=== PATIENT | female | born 1995 | race Caucasian/White ===

== ENCOUNTER → 2016-10-04 | Outpatient (CLI) | payer OTHER ==
[~2016-10-04] MED LIST: CYCL10TA9 PO; FLUO40CA PO; HYDR-3730 PO; NITR-65 PO; NORG1TAB14 PO; PHEN-640 PO; PHEN15CA67 PO
--- NOTE | 2016-10-04 10:45 | Diagnostic Imaging Report ---
PROCEDURE: US Gallbladder. INDICATION: Postprandial right upper quadrant pain for 2-3 weeks with nausea. TECHNIQUE: Multiple grayscale sonographic images were obtained of the right upper quadrant of the abdomen. CORRELATION STUDY: None FINDINGS: LIVER: The liver measures 14 cm. There is uniform echotexture. GALLBLADDER: The gallbladder is present and demonstrates no evidence of shadowing gallstones or biliary sludge. No abnormal gallbladder wall thickening or pericholecystic fluid. COMMON BILE DUCT: Within normal limits at 3 mm. RIGHT KIDNEY: Measures 11.1 cm. No hydronephrosis. PANCREAS: Visualized portions appearing unremarkable. OTHER: None. IMPRESSION: 1. Negative appearing right upper quadrant abdominal ultrasound. Dictated by: Dictated on workstation # [id number]
== END ==
LOC: RAD 09:15
PROVIDERS: ATTEND Nurse Practitioner Family
DX: R10.11 Right upper quadrant pain (principal); R10.13 Epigastric pain
CPT/HCPCS: 76705

== ENCOUNTER 2016-10-11 19:35 | Emergency (ER) | payer OTHER ==
[~2016-10-11] VITALS: Ht 165.1 cm; Wt 74.4 kg
[2016-10-11] MEDS ORDERED: NORG1TAB14 PO (20:20)
[2016-10-11] MEDS ORDERED: PHEN15CA67 PO (20:20)
[2016-10-11] MEDS ORDERED: FLUO40CA PO (20:20)
--- NOTE | 2016-10-11 20:26 | ED GU-Female ---
General Chief Complaint: -Female Stated Complaint: VAGINAL BLEEDING,CRAMPING Nursing Triage Note: MOTHER GIVING HX FOR 21 Y/O. PT SHOULD OF STARTED MENSES SUNDAY AND STARTED TODAY. MOTHER OBTAINED TAMPON FOR STAFF TO FEW CLOTS SHE THOUGHT WERE ABNORMAL. ALSO A PIC ON CELLPHONE OF A CLOT. LMP LAST MONTH. MOTHER REQUEST TEST. PT REPORTS CRAMPS WITH HER MENSTRUAL FLOW. Nursing Sepsis Screen: No Definite Risk Source: patient, family (mother) Exam Limitations: no limitations History of Present Illness Time seen by provider: 20:25 Initial Comments 21-year-old female patient presents to the emergency department with her mother with reports of abnormal blood clots on the tampon earlier today. Patient states she should have started her period last Sunday, but states she started today instead. Patient does report lower abdominal cramping similar to usual menstrual cramping. Timing/Duration: this morning Severity/Quality: cramping Location: suprapubic Radiation: none Activities at Onset: none Prior Genitourinary Problems: similar symptoms Sexual Normangee History: less than 2 months ago, single partner Modifying Factors: Worsens With Other (denies modifying factors) Allergies and Home Medications Allergies Uncoded Allergies: PENICILLIN (Adverse Reaction, Mild, HIVES, 10/11/16) Home Medications Fluoxetine HCl 40 Mg Capsule #30 40 MG PO DAILY (Reported) Nitrofurantoin Monohyd/M-Cryst 100 Mg Capsule #14 1 CAP PO BID Prescribed by: ALEXANDRA CLINE on 10/11/162134 Norgestimate-Ethinyl Estradiol 1 Each Tablet #84 15 MG PO DAILY (Reported) Phenazopyridine HCl 200 Mg Tablet #30 1 TAB PO Q8H PRN PRN PAIN Prescribed by: ALEXANDRA CLINE on 10/11/162134 Phentermine HCl 15 Mg Capsule 15 MG PO DAILY (Reported) Constitutional: No chills, No dizziness, No fever, No malaise Respiratory: no symptoms reported Cardiovascular: no symptoms reported Gastrointestinal: see HPI abdominal pain (suprapubic abdominal cramping)No constipation, No diarrhea, No hematemesis, No loss of appetite, No melena, No nausea, No vomiting Genitourinary: see HPIdenies burning, denies discharge, denies dysuria, denies frequency, denies flank pain, denies hematuria, pain (suprapubic cramping) : No LMP: Sep 10, 2016 Musculoskeletal: No back pain Skin: no symptoms reported Psychiatric/Neurological: No Symptoms Reported All Other Systemes Reviewed Negative Unless Noted: Yes (Negative excepted noted.) Past Duwicxi-Nezcgn-Guinet Hx Patient Social History Alcohol Use: Occasionally Uses Recreational Drug Use: No Smoking Status: Never a Smoker Recent Foreign Travel: No Contact w/Someone Who Travel: No Recent Infectious Disease Expo: No Recent Hopitalizations: No Physical Abuse Screen: No Sexual Abuse: No Seasonal Allergies Seasonal Allergies: No Surgeries HX Surgeries: Yes Surgeries: Appendectomy Respiratory Hx Respiratory Disorders: No Cardiovascular Hx Cardiac Disorders: No Reproductive System : No (REPORTS AUG PERIOD) Hx : 0 Hx Reproductive Disorders: No Genitourinary Hx Genitourinary Disorders: No Gastrointestinal Hx Gastrointestinal Disorders: No Musculoskeletal Hx Musculoskeletal Disorders: No HEENT HX ENT Disorders: No Cancer Hx Cancer: No Psychosocial Hx Psychiatric Problems: Yes Behavioral Health Disorders: Anxiety, Depression Integumentary HX Skin/Integumentary Disorder: No Blood Transfusions Hx Blood Disorders: No Reviewed Nursing Assessment Reviewed/Agree w Nursing PMH: Yes Family Medical History Significant Family History: No Pertinent Family Hx Physical Exam Vital Signs Capillary Refill : Less Than 3 Seconds General Appearance: WD/WN no apparent distress Cardiovascular: normal peripheral pulses regular rate, rhythm no murmur Respiratory: lungs clear normal breath sounds no respiratory distress Gastrointestinal: normal bowel sounds non tender soft no organomegalyNo distended Back: normal inspection no CVA tenderness Extremities: normal inspection normal capillary refill Neurologic/Psychiatric: alert normal mood/affect oriented x 3 Skin: normal color warm/dry Progress/Results/Core Measures Results/Orders Lab Results My Orders Vital Signs/I&O Blood Pressure Mean: 96 Departure Communication Progress Notes Laboratory findings discussed with the patient. Proceed with discharge to home. Patient follow-up Dr. Davalos for formal pelvic/Pap smear has an outpatient. Impression Impression: Primary Impression: Urinary tract infection Disposition: HOME, SELF-CARE Condition: Improved Departure-Patient Inst. Decision time for Depature: 21:33 Referrals: NAVIN DAVALOS MD (PCP/Family) Primary Care Physician Patient Instructions: Urinary Tract Infection, Adult (DC) Add. Discharge Instructions: All discharge instructions reviewed with patient and/or family. Voiced understanding. Medications as instructed. Tylenol Extra Strength over-the- counter as directed for pain. Ibuprofen 800 mg by mouth every 8 hours as needed for pain. Drink plenty of fluids. Follow-up with your family physician for recheck, call for appointment time tomorrow morning. Return to the emergency department for worsened symptoms or any other concerns. Scripts Nitrofurantoin Monohyd/M-Cryst (Macrobid 100 mg Capsule)100 Mg Capsule1 Cap PO BID #14 0 Prov:ALEXANDRA CLINE 10/11/16 Phenazopyridine HCl (Pyridium)200 Mg Tablet1 Tab PO Q8H PRN PAIN #30 AD Prov:ALEXANDRA CLINE 10/11/16 Work/School Note: Work Release Form Date Seen in the Emergency Department: Oct 11, 2016 Return to Work: Oct 13, 2016 Restrictions: No Restrictions ALEXANDRA CLINE Oct 11, 2016 20:26 Lymphocytes (%) (Auto) 31 12-44 % Mean Corpuscular Hemoglobin 30 25-34 PG Mean Corpuscular Hemoglobin Concent 34 32-36 G/DL Mean Corpuscular Volume 89 80-99 FL Mean Platelet Volume 11.1 H 7.4-10.4 FL Monocytes # (Auto) 0.8 0.0-1.0 X 10^3 Monocytes (%) (Auto) 10 0-12 % Neutrophils # (Auto) 4.1 1.8-7.8 X 10^3 Neutrophils (%) (Auto) 53 42-75 % Platelet Count 284 130-400 10^3/uL Red Blood Count 4.48 4.35-5.85 10^6/uL Red Cell Distribution Width 13.5 10.0-14.5 % Serum Test, Qualitative NEGATIVE NEGATIVE White Blood Count 7.6 4.3-11.0 10^3/uL My Orders Orders-ALEXANDRA CLINE Ua Culture If Indicated (10/11/16 20:18) Cbc With Automated Diff (10/11/16 20:18) Hcg,Qualitative Serum (10/11/16 20:57) Urine Culture (10/11/16 20:47) Vital Signs/I&O Vital Sign - Last 12Hours 10/11/16 19:59 Temp 98.9 Pulse 84 Resp 20 B/P 119/84 O2 Delivery Room Air Blood Pressure Mean: 96 Departure Impression Impression: Primary Impression: Urinary tract infection Disposition: 01 HOME, SELF-CARE Condition: Improved Departure-Patient Inst. Decision time for Depature: 21:33 Referrals: NAVIN DAVALOS MD (PCP/Family) Primary Care Physician Patient Instructions: Urinary Tract Infection, Adult (DC) Add. Discharge Instructions: All discharge instructions reviewed with patient and/or family. Voiced understanding. Medications as instructed. Tylenol Extra Strength over-the- counter as directed for pain. Ibuprofen 800 mg by mouth every 8 hours as needed for pain. Drink plenty of fluids. Follow-up with your family physician for recheck, call for appointment time tomorrow morning. Return to the emergency department for worsened symptoms or any other concerns. Scripts Nitrofurantoin Monohyd/M-Cryst (Macrobid 100 mg Capsule)100 Mg Capsule1 Cap PO BID #14 0 Prov:ALEXANDRA CLINE 10/11/16 Phenazopyridine HCl (Pyridium)200 Mg Tablet1 Tab PO Q8H PRN PAIN #30 AD Prov:ALEXANDRA CLINE 10/11/16 Work/School Note: Work Release Form Date Seen in the Emergency Department: Oct 11, 2016 Return to Work: Oct 13, 2016 Restrictions: No Restrictions ALEXANDRA CLINE Oct 11, 2016 20:26
[2016-10-11 21:09] LABS: BASOPHILS % (AUTO) 0 % (0-10); EOSINOPHILS # (AUTO) 0.4 10^3/uL (0.0-0.3); EOSINOPHILS % (AUTO) 5 % (0-10); LYMPHOCYTES # (AUTO) 2.3 X 10^3 (1.0-4.0); LYMPHOCYTES % (AUTO) 31 % (12-44); MEAN CORPUSCULAR HEMOGLOBIN 30 PG (25-34); MEAN CORPUSCULAR HGB CONC 34 G/DL (32-36); MEAN CORPUSCULAR VOLUME 89 FL (80-99); MEAN PLATELET VOLUME 11.1 FL (7.4-10.4); MONOCYTES # (AUTO) 0.8 X 10^3 (0.0-1.0); MONOCYTES % (AUTO) 10 % (0-12); NEUTROPHILS # (AUTO) 4.1 X 10^3 (1.8-7.8); NEUTROPHILS % (AUTO) 53 % (42-75); PLATELET COUNT 284 10^3/uL (130-400); RED BLOOD COUNT 4.48 10^6/uL (4.35-5.85); RED CELL DISTRIBUTION WIDTH 13.5 % (10.0-14.5); WHITE BLOOD COUNT 7.6 10^3/uL (4.3-11.0)
[2016-10-11 21:10] LABS: KETONES,URINE NEGATIVE (NEGATIVE); LEUKOCYTE ESTERASE ,URINE 3+ (NEGATIVE); NITRITE,URINE NEGATIVE (NEGATIVE); PH,URINE 6 (5-9); PROTEIN,URINE 2+ (NEGATIVE); UROBILINOGEN,URINE 1 MG/DL (NORMAL)
[2016-10-11 21:20] LABS: SQUAMOUS EPITHELIAL CELL,UR 0-2 /HPF
[2016-10-11] MEDS ORDERED: NITR-65 PO (21:35)
[2016-10-11] MEDS ORDERED: PHEN-640 PO (21:35)
[2016-10-11] MEDS ORDERED: RX-NITROFURANTOIN 100 MG (MACROBID) CAP PPK#2 PO STA (21:40)
[2016-10-11 21:52] VITALS: BP 119/84
[2016-10-12 08:18] LABS: BILIRUBIN,URINE 1+ (NEGATIVE)
== END 2016-10-11 21:55 | disposition home or self-care (01) ==
LOC: EDUNIT# 19:35 → ER 19:36
DX: N39.0 Urinary tract infection, site not specified (principal); N94.6 Dysmenorrhea, unspecified; Z32.02 Encounter for pregnancy test, result negative
CPT/HCPCS: 36415; 81000; 84703; 85025; 87088; 99283

== ENCOUNTER → 2016-10-13 | Outpatient (CLI) | payer OTHER ==
[~2016-10-13] MED LIST changes: +CATHETER FLUSH 10 ML SYR IV PRN
--- OUTSIDE RECORDS SUMMARY | 2016-10-13 09:31 | XMS REPORT | Continuity of Care Document ---
Author Author [facility] Organization [facility] Address Unknown Phone Unavailable Care Team Providers Care Boat Outfitter Name Role Phone NAVIN MARIA MD PCP Insurance Providers Payer Name Policy Number Subscriber Name Relationship [id number] Keesha Perez Fish G8 Step Mother Advance Directives Directive Response Recorded Date/Time Advance Directives No 10/11/16 7:59pm Health Care Power of Press Loader No 10/11/16 7:59pm Organ Donor No 10/11/16 7:59pm Resuscitation Status Full Code 10/11/16 7:59pm Chief Complaint and Reason for Visit Chief Complaint -Female Reason for Visit Urinary tract infection Problems Active Problems Medical Problem Onset Date Status Urinary tract infection Unknown Acute Medications Current Home Medications Medication Dose Units Route Directions Days/Qty Instructions Start Date Fluoxetine Hcl 40 Mg 40 Mg Oral Daily 30 10/11/16 Norgestimate-Ethinyl Estradiol 1 Each 15 Mg Oral Daily 84 10/11/16 Phentermine Hcl 15 Mg 15 Mg Oral Daily 10/11/16 Phenazopyridine Hcl 200 Mg 1 Tab Oral Every 8HRS as needed for Pain 30 10/11/16 Nitrofurantoin Monohyd/M-Cryst 100 Mg 1 Cap Oral Twice A Day CAP Days 10/11/16 Social History Social History Problem Response Recorded Date/Time Alcohol Use Occasionally Uses 10/11/2016 7:59pm Recreational Drug Use No 10/11/2016 7:59pm Recent Foreign Travel No 10/11/2016 7:59pm Recent Infectious Disease Exposure No 10/11/2016 7:59pm Hospitalization with Isolation Denies 10/11/2016 7:59pm Smoking Status Never a Smoker 10/11/2016 7:59pm Recent Hopitalizations No 10/11/2016 7:59pm Hospitalization with Isolation Denies 10/11/2016 7:59pm Query Response Start Date Stop Date Smoking Status Never a Smoker Hospital Discharge Instructions No hospital discharge instructions. Plan of Care Discharge Date 10/11/16 9:55pm Disposition 01 HOME, SELF-CARE Condition at Discharge Improved Instructions/Education Provided Urinary Tract Infection, Adult (DC) Forms Provided Work Release Form Prescriptions See Medication Section Referrals NAVIN MARIA MD - Primary Care Physician Additional Instructions/Education All discharge instructions reviewed with patient and/or family. Voiced understanding. Medications as instructed. Tylenol Extra Strength [id number] as directed for pain. Ibuprofen 800 mg by mouth every 8 hours as needed for pain. Drink plenty of fluids. Follow-up with your family physician for recheck, call for appointment time tomorrow morning. Return to the emergency department for worsened symptoms or any other concerns. Functional Status No functional status results. Allergies, Adverse Reactions, Alerts Allergen Type Severity Reaction Status Last Updated PENICILLIN Adverse Reaction Mild HIVES Active 10/11/16 Immunizations No immunization records. Vital Signs Acute Vital Signs Vital Response Date/Time Temperature (Fahrenheit) 98.9 degrees F (97.6 - 99.5) 10/11/2016 7:59pm Temperature (Calculated Celsius) 37.08059 degrees C (36.4 - 37.5) 10/11/2016 7:59pm Temperature Source Temporal 10/11/2016 7:59pm Pulse Rate (adult) 84 bpm (60 - 90) 10/11/2016 7:59pm Respiratory Rate 20 bpm (12 - 24) 10/11/2016 7:59pm Blood Pressure 119/84 mm Hg 10/11/2016 7:59pm Blood Pressure Mean 96 mm Hg 10/11/2016 7:59pm Pain Numeric Pain Scale 2 10/11/2016 7:59pm Height (Feet) 5 feet 10/11/2016 7:59pm Height (Inches) 5 inches 10/11/2016 7:59pm Height (Calculated Centimeters) 165.753374 cm 10/11/2016 7:59pm Weight (Pounds) 164 pounds 10/11/2016 7:59pm Weight (Calculated Kilograms) 74.148915 kilograms 10/11/2016 7:59pm Capillary Refill Capillary Refill Less Than 3 Seconds 10/11/2016 7:59pm Height 5 ft 5 in Weight 164 lb Body Mass Index 27.3 kg/m^2 Results Pending Laboratory Results Test Name Collection Date/Time Procedures No known history of procedures. Encounters Encounter Location Arrival/Admit Date Discharge/Depart Date Attending Provider Registered Emergency Room [facility] 10/11/16 7:36pm ALEXANDRA CLINE Registered Clinic [facility] 10/04/16 9:15am EDUAR AMARO Recent Diagnosis
--- NOTE | 2016-10-13 12:09 | Diagnostic Imaging Report ---
EXAMINATION: HIDA with EF measurements Indication: Abdominal pain TECHNIQUE: After the intravenous administration of 5.4 mCi of Tc 99m Choletec, imaging over the abdomen was obtained. This was followed by administration of Ensure orally to stimulate intrinsic CCK secretion, followed by continued imaging with ejection fraction measured. FINDINGS: There is homogeneous uptake in the liver with prompt bile duct and gallbladder filling seen. Bowel activity is seen at 65 minutes. Based on further imaging and gallbladder area of interest activity measurements after the administration of Ensure, the gallbladder ejection fraction is estimated at 53%. IMPRESSION: 1. Normal hepatobiliary uptake and Gallbladder filling. 2. Borderline normal gallbladder ejection fraction. Correlate clinically. Dictated by: Dictated on workstation # [id number]
== END ==
LOC: CARD 09:27
PROVIDERS: ATTEND Family Medicine
DX: R10.11 Right upper quadrant pain (principal)
CPT/HCPCS: 78227

== ENCOUNTER 2016-11-02 10:49 | Outpatient (CLI) | payer OTHER ==
[~2016-11-02] VITALS: Ht 165.1 cm; Wt 80.3 kg
[~2016-11-02 10:49] MED LIST changes: -CATHETER FLUSH 10 ML SYR IV PRN; -CYCL10TA9 PO; -HYDR-3730 PO
--- OUTSIDE RECORDS SUMMARY | 2016-11-02 10:52 | XMS REPORT | Continuity of Care Document ---
Author Author [facility] Organization [facility] Address Unknown Phone Unavailable Care Team Providers Care Drum Sander Setter Name Role Phone NAVIN MARIA MD PCP Insurance Providers Payer Name Policy Number Subscriber Name Relationship [id number] Keesha Perez Fish G8 Step Mother Advance Directives Directive Response Recorded Date/Time Advance Directives No 10/11/16 7:59pm Health Care Power of Car Tester No 10/11/16 7:59pm Organ Donor No 10/11/16 [...] understanding. Medications as instructed. Tylenol Extra Strength [id number]-efplatk as directed for pain. Ibuprofen 800 mg [...] - 99.5) 10/11/2016 7:59pm Temperature (Calculated Celsius) 37.98105 degrees C (36.4 - 37.5) 10/11/2016 7:59pm [...] 5 inches 10/11/2016 7:59pm Height (Calculated Centimeters) 165.858171 cm 10/11/2016 7:59pm Weight (Pounds) 164 pounds 10/11/2016 7:59pm Weight (Calculated Kilograms) 74.411800 kilograms 10/11/2016 7:59pm Capillary Refill Capillary Refill Less Than 3 Seconds 10/11/2016 7:59pm Height 5 ft 5 in Weight 164 lb Body Mass Index 27.3 kg/m^2 Results Pending Laboratory Results Test Name Collection Date/Time Procedures No known history of procedures. Encounters Encounter Location Arrival/Admit Date Discharge/Depart Date Attending Provider Registered Emergency Room [facility] 10/11/16 7:36pm ALEXANDRA CLINE Registered Clinic [facility] 10/04/16 9:15am EDUAR AMARO Recent Diagnosis
[2016-11-02 11:03] VITALS: BP 109/71
== END 2016-11-02 11:39 | disposition home or self-care (01) ==
LOC: PREOP 10:49
PROVIDERS: ATTEND Surgery Pediatric Surgery
DX: Z01.818 Encounter for other preprocedural examination (principal); Z11.2 Encounter for screening for other bacterial diseases; K82.8 Other specified diseases of gallbladder
CPT/HCPCS: 87081

== ENCOUNTER 2016-11-09 08:19 | Day surgery (SDC) | payer OTHER ==
[~2016-11-09] VITALS: Ht 165.1 cm; Wt 80.3 kg
--- NOTE | 2016-11-09 08:22 | Progress Note-Pre Operative ---
Pre-Operative Progress Note H&P Reviewed The H&P was reviewed, patient examined and no changes noted. Date H&P Reviewed: Nov 09, 2016 Time H&P Reviewed: 08:21 Pre-Operative Diagnosis: symptomatic biliary dyskinesia GAYATRI JOHNSON MD Nov 09, 2016 8:21 am
--- OUTSIDE RECORDS SUMMARY | 2016-11-09 08:22 | XMS REPORT | Continuity of Care Document ---
Author Author [facility] Organization [facility] Address Unknown Phone Unavailable Care Team Providers Care Manager Labor Relations Name Role Phone NAVIN MARIA MD PCP Insurance Providers Payer Name Policy Number Subscriber Name Relationship [id number] Keesha Perez Fish G8 Step Mother Advance Directives Directive Response Recorded Date/Time Advance Directives No 10/11/16 7:59pm Health Care Power of Guard Manager No 10/11/16 7:59pm Organ Donor No 10/11/16 [...] understanding. Medications as instructed. Tylenol Extra Strength ddge-zyy-[id number] as directed for pain. Ibuprofen 800 mg [...] - 99.5) 10/11/2016 7:59pm Temperature (Calculated Celsius) 37.37930 degrees C (36.4 - 37.5) 10/11/2016 7:59pm [...] 5 inches 10/11/2016 7:59pm Height (Calculated Centimeters) 165.409658 cm 10/11/2016 7:59pm Weight (Pounds) 164 pounds 10/11/2016 7:59pm Weight (Calculated Kilograms) 74.245184 kilograms 10/11/2016 7:59pm Capillary Refill Capillary Refill Less Than 3 Seconds 10/11/2016 7:59pm Height 5 ft 5 in Weight 164 lb Body Mass Index 27.3 kg/m^2 Results Pending Laboratory Results Test Name Collection Date/Time Procedures No known history of procedures. Encounters Encounter Location Arrival/Admit Date Discharge/Depart Date Attending Provider Registered Emergency Room [facility] 10/11/16 7:36pm ALEXANDRA CLINE Registered Clinic [facility] 10/04/16 9:15am EDUAR AMARO Recent Diagnosis
--- OUTSIDE RECORDS SUMMARY | 2016-11-09 08:22 | XMS REPORT | Continuity of Care Document ---
Author Author [facility] Organization [facility] Address Unknown Phone Unavailable Care Team Providers Care Stone Finisher Name Role Phone NAVIN MARIA MD PCP Insurance Providers Payer Name Policy Number Subscriber Name Relationship [id number] Keesha e[employer]z Fish G8 Step Mother Advance Directives Directive Response Recorded Date/Time Advance Directives No 10/11/16 7:59pm Health Care Power of Dumpcart Driver No 10/11/16 7:59pm Organ Donor No 10/11/16 [...] understanding. Medications as instructed. Tylenol Extra Strength aqvi-zup-ubttqec as directed for pain. Ibuprofen 800 mg [...] - 99.5) 10/11/2016 7:59pm Temperature (Calculated Celsius) 37.25911 degrees C (36.4 - 37.5) 10/11/2016 7:59pm [...] 5 inches 10/11/2016 7:59pm Height (Calculated Centimeters) 165.321288 cm 10/11/2016 7:59pm Weight (Pounds) 164 pounds 10/11/2016 7:59pm Weight (Calculated Kilograms) 74.206464 kilograms 10/11/2016 7:59pm Capillary Refill Capillary Refill Less Than 3 Seconds 10/11/2016 7:59pm Height 5 ft 5 in Weight 164 lb Body Mass Index 27.3 kg/m^2 Results Pending Laboratory Results Test Name Collection Date/Time Procedures No known history of procedures. Encounters Encounter Location Arrival/Admit Date Discharge/Depart Date Attending Provider Registered Emergency Room [facility] 10/11/16 7:36pm ALEXANDRA CLINE Registered Clinic [facility] 10/04/16 9:15am EDUAR AMARO Recent Diagnosis
[2016-11-09] MEDS ORDERED: morphine INJ 10 MG/ML 1ML (SYR OR VIAL) IVP PRN ×2 (08:30→11:45)
[2016-11-09] MEDS ORDERED: ACETAMINOPHEN 325 MG TABLET/CAPLET (TYLENOL) PO PRN (08:30)
[2016-11-09] MEDS ORDERED: HYDROcodone/APAP 5 MG/325 MG (LORTAB) TAB PO ONE (08:30)
[2016-11-09] MEDS ORDERED: ONDANSETRON 4 MG/2 ML (SDV) Z0FRAN IVP PRN ×2 (08:30→11:45)
[2016-11-09] MEDS ORDERED: CLINDAMYCIN 600 MG/50 ML IVPB 50 ML IV ONE ×2 (08:45→09:30)
[2016-11-09 09:21] VITALS: BP 109/77
[2016-11-09] MEDS ORDERED: LACTATED RINGERS 1,000 ML IV ONE ×3 (09:53→11:32)
[2016-11-09] MEDS ORDERED: DEXAMETHASONE PF 10 MG/ML (DECADRON) VIAL ONE (09:53)
[2016-11-09] MEDS ORDERED: ROCURONIUM 50 MG/5 ML (ZEMURON) VIAL IV ONE (09:53)
[2016-11-09] MEDS ORDERED: SEVOFLURANE (ULTANE) 15 ML INHAL SOLN ONE (09:53)
[2016-11-09] MEDS ORDERED: proPOfol 200 MG/20 ML (DIPRIVAN) VIAL IV ONE (09:53)
[2016-11-09] MEDS ORDERED: LIDOCAINE PF 2% 10 ML (XYLOCAINE) AMP ONE (09:53)
[2016-11-09] MEDS ORDERED: MIDAZOLAM 2 MG/2 ML (VERSED) VIAL ONE (09:54)
[2016-11-09] MEDS ORDERED: fentaNYL INJECTION 250 MCG/5 ML AMP ONE (09:54)
[2016-11-09] MEDS ORDERED: BUP/EPI 0.5% 1:200,000 (SENSORCAINE) 30 ML VIAL ONE (10:09)
[2016-11-09] MEDS ORDERED: LACTATED RINGERS 1,000 ML IV SCH (10:45)
[2016-11-09] MEDS ORDERED: NEOSTIGMINE (BLOXIVERZ ) 1 MG/1ML 10 ML VIAL ONE (11:33)
[2016-11-09] MEDS ORDERED: GLYCOPYRROLATE 0.2 MG/ML (ROBINUL) 2 ML VIAL ONE (11:33)
[2016-11-09] MEDS ORDERED: MEPERIDINE (DEMEROL) INJ 50 MG/ML IVP PRN (11:45)
[2016-11-09] MEDS ORDERED: HYDROmorphone (DILAUDID) 2 MG/ML VIAL IVP PRN (11:45)
[2016-11-09] MEDS ORDERED: PROMETHAZINE INJ 25 MG/ML (PHENERGAN) AMP IVP PRN (11:45)
[2016-11-09] MEDS ORDERED: morphine INJ 10 MG/ML 1ML (SYR OR VIAL) ONE (11:53)
[2016-11-09 12:30] VITALS: BP 120/72
[2016-11-09] MEDS ORDERED: HYDROcodone/APAP 7.5 MG/325 MG (LORTAB, LORCET PLUS) TABLET PO ONE (12:37)
[2016-11-09] MEDS ORDERED: HYDROcodone/APAP 5 MG/325 MG (LORTAB) TAB ONE (12:40)
[2016-11-09 13:00] VITALS: BP 122/71
[2016-11-09 13:30] VITALS: BP 108/68
[2016-11-09] MEDS ORDERED: HYDR-3730 PO (14:09)
--- NOTE | 2016-11-09 14:13 | Discharge Inst-Surgical ---
D/C Lap Instructions-ALEX New, Converted, or Re-Newed RX: RX on Chart Follow Up Appt in 2 weeks Activity as tolerated No driving for 24 hours No driving while on pain medications Incentive Spirometry use every 2 hours while awake Regular Diet Symptoms to Report: Fever over 101 degree F, Nausea/Vomiting Infection Signs and Symptoms to report: Increased redness, Foul odor of wound, Increased drainage Bathing instructions: May shower Operative Area Clean/Dry; Keep incision clean/dry If any problems/questions: Contact your physician or go to Emergency Room GAYATRI JOHNSON MD Nov 09, 2016 2:13 pm
--- NOTE | 2016-11-09 14:16 | Progress Note-Post Operative ---
Post-Operative Progess Note Appliance Assembler rasheed samaniego SEED TESTER Pre-Operative Diagnosis biliary dyskinesia Post-Operative Diagnosis same Post-Op Procedure Note Date of Procedure: Nov 09, 2016 Name of Procedure: laparoscopic cholecystectomy Anesthesia Type GET Estimated blood loss (mL): minimal Specimen(s) collected gallbladder GAYATRI JOHNSON MD Nov 09, 2016 2:16 pm
[2016-11-09 14:30] VITALS: BP 108/68
[2016-11-09 14:45] VITALS: BP 108/68
--- NOTE | 2016-11-11 10:00 | OPERATIVE REPORT ---
PROCEDURE PHYSICIAN: GAYATRI VELAZQUEZ DATE OF PROCEDURE: 11/09/2016 ATTENDING PRIMARY CARE PHYSICIAN: Dr. Jada Davalos. PREOPERATIVE DIAGNOSIS: Symptomatic biliary dyskinesia. POSTOPERATIVE DIAGNOSIS: Symptomatic biliary dyskinesia. PROCEDURE: Laparoscopic cholecystectomy. SURGEON: Dr. Velazquez. BUSINESS TECHNOLOGY TEACHER: Gigi Cabral APRN ANESTHESIA: General endotracheal. ESTIMATED BLOOD LOSS: Minimal. FINDINGS: Moderate gallbladder wall dilatation. No gallstones. DISPOSITION: The patient tolerated the procedure well. Ms. Pura Chowdhury is a 21-year-old female who has had intermittent episodes of right upper abdominal and epigastric pain. She also reports associated episodes of nausea and vomiting, usually following meals. She also states that she has tried purposefully been trying to lose weight and during this process, her symptoms have worsened. She had an ultrasound performed, which did not show any gallstones. She then had a HIDA scan performed which did show a normal ejection fraction of 54%. However, during the administration of Kinevac analog she did have severe reproduction of symptoms consistent with symptomatic biliary dyskinesia. PROCEDURE: The patient was brought to the operating room, laid supine on the table. After adequate IV pain and sedative medications and general endotracheal intubation the abdomen was prepped and draped in standard surgical fashion. 0.5% Marcaine with epinephrine was then used to anesthetize the overlying the left upper abdominal quadrant. A small transverse incision made using a 15 blade. An 0 silk suture was applied to the medial aspect of the incision for retraction. A Veress needle inserted with a low opening pressure of 0 mmHg and the abdomen was insufflated to 15 mmHg pressure. The Veress needle removed and a 5 mm Xcel trocar placed followed by a 5 mm, 45 angle laparoscope, visualizing the peritoneal cavity. A four-quadrant abdominal exploration was performed. There was mild to moderate gallbladder wall dilatation. There was no gallbladder wall thickening. What was visualized of the stomach, omentum, small bowel and colon appeared normal. Under direct visualization we then proceeded to place a supraumbilical 10 mm port after the skin and peritoneum were anesthetized using 0.5% Marcaine with epinephrine and a transverse skin incision made using a 15 blade. In a similar fashion a right upper right upper abdominal quadrant, 5 mm port was placed. The patient was then placed in reverse Trendelenburg position as well as planed right side up, left side down. The fundus of the gallbladder was then retracted anteriorly and superiorly. The hepatoduodenal ligament was identified and dissected out. The entire critical view of safety was identified including the triangle of Calot as well as the cystic duct and artery going into the gallbladder, as well as the liver behind the proximal gallbladder. A timeout was then taken and the cystic duct and artery were then clipped proximally and distally and cut with Endo Gerri with visualization of good hemostasis. The gallbladder was then dissected off the liver bed using electrocautery on the hook instrument with visualization of good hemostasis, as well as no leaking ducts of Luschka. The gallbladder was removed through the 10 mm port site using an Endo Catch bag. The 10 mm port site, fascia and peritoneum were then closed under direct visualization using a Diego-Frank device and 0 Vicryl suture. The abdomen was desufflated and the remaining ports removed. All skin incisions were closed using 4-0 Monocryl running subcuticular sutures. Wounds were then cleaned and covered with Dermabond. The patient tolerated procedure well. We will start IV and oral pain medication as well as a clear liquid diet. Once she is tolerating clears, has good pain control with oral pain medications and ambulating well, we will discharge her home. Job ID: [id number] Dictated Date: 11/09/2016 11:39:46 Toy Maker Date: 11/11/2016 09:49:56 / tigre
== END 2016-11-09 14:45 | disposition home or self-care (01) ==
LOC: SDC 08:19
PROVIDERS: ATTEND Surgery Pediatric Surgery
DX: K81.1 Chronic cholecystitis (principal)
CPT/HCPCS: 84703; 88304; 94664

== ENCOUNTER 2016-12-28 16:15 | Emergency (ER) | payer OTHER ==
[~2016-12-28] VITALS: Ht 165.1 cm; Wt 70.3 kg
[~2016-12-28 16:15] MED LIST changes: +HYDR-3730 PO
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
[2016-12-28] MEDS ORDERED: CYCL10TA9 PO (17:53)
[2016-12-28 17:58] VITALS: BP 108/73
--- OUTSIDE RECORDS SUMMARY | 2017-01-21 06:53 | XMS REPORT | Continuity of Care Document ---
Demographics Preferred Language Unknown Marital Status Unknown Voodoo Affiliation Unknown Race Unknown Ethnic Group Unknown Author Author [facility] Address Unknown Phone Unavailable Allergies Active Description Code Type Severity Reaction Onset Reported/Identified Relationship to Patient Clinical Status Yes Penicillins Drug Allergy 05/03/2009 Medications Problems Date Dx Coded Attending Type Code Diagnosis Diagnosed By 05/03/2009 706.1 ACNE 05/03/2009 V03.89 MENINGOCOCCAL, OTHER SPECIFIED SINGLE BACTERIAL DISEASE 05/03/2009 V05.3 Need For Vaccination Hepatitis A 05/03/2009 V05.8 GARDASIL, VARICELLA 05/03/2009 V06.5 Vaccines Prophylactic Need Against Td 05/03/2009 V20.2 NORMAL ROUTINE HISTORY AND PHYSICAL WELL CHILD (6 - 12) 07/26/2009 719.46 joint pain, localized in the knee 07/27/2010 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 Visit Date/Time Discharge Status Pt. Type Provider Facility Loc./Unit Complaint [id number] 06/01/2011 16:34:00 06/01/2011 23: 59:59 CLS Outpatient
== END 2016-12-28 17:59 | disposition home or self-care (01) ==
LOC: EDUNIT# 16:15 → ER 16:17
DX: S80.01XA Contusion of right knee, initial encounter (principal); S09.90XA Unspecified injury of head, initial encounter; V43.52XA Car driver injured in collision with other type car in traffic accident, initial encounter; Y92.410 Unspecified street and highway as the place of occurrence of the external cause; Y99.8 Other external cause status
CPT/HCPCS: 70450; 73562; 84703; 99283

== ENCOUNTER 2019-02-07 04:49 | Observation (INO) | payer OTHER ==
[2019-02-07] VITALS (7 sets, daily range): BP systolic 96–124; BP diastolic 59–90
[~2019-02-07] VITALS: Ht 167.6 cm; Wt 72.6 kg
[~2019-02-07 04:49] MED LIST changes: +CYCL10TA9 PO; +PHEN15CA PO; -PHEN15CA67 PO
[2019-02-07] MEDS ORDERED: NS IV 1000 ML 1,000 ML IV ONE (04:58)
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
[2019-02-07 05:05] LABS: BASOPHILS % (AUTO) 0 % (0-10); EOSINOPHILS # (AUTO) 0.2 10^3/uL (0.0-0.3); EOSINOPHILS % (AUTO) 3 % (0-10); HEMATOCRIT 38 % (35-52); HEMOGLOBIN 12.8 G/DL (11.5-16.0); LYMPHOCYTES # (AUTO) 2.3 X 10^3 (1.0-4.0); LYMPHOCYTES % (AUTO) 32 % (12-44); MEAN CORPUSCULAR HEMOGLOBIN 31 PG (25-34); MEAN CORPUSCULAR HGB CONC 34 G/DL (32-36); MEAN CORPUSCULAR VOLUME 91 FL (80-99); MEAN PLATELET VOLUME 11.2 FL (7.4-10.4); MONOCYTES # (AUTO) 0.5 X 10^3 (0.0-1.0); MONOCYTES % (AUTO) 7 % (0-12); NEUTROPHILS # (AUTO) 4.3 X 10^3 (1.8-7.8); NEUTROPHILS % (AUTO) 58 % (42-75); PLATELET COUNT 274 10^3/uL (130-400); RED CELL DISTRIBUTION WIDTH 13.3 % (10.0-14.5); WHITE BLOOD COUNT 7.4 10^3/uL (4.3-11.0)
--- NOTE | 2019-02-07 05:26 | NUR ---
Poison control contacted by this RN @ this time.
[2019-02-07 05:35] LABS: BILIRUBIN,URINE NEGATIVE (NEGATIVE); CLARITY,URINE CLEAR; COLOR,URINE YELLOW; GLUCOSE, URINE (UA) NEGATIVE (NEGATIVE); KETONES,URINE NEGATIVE (NEGATIVE); LEUKOCYTE ESTERASE ,URINE NEGATIVE (NEGATIVE); NITRITE,URINE NEGATIVE (NEGATIVE); PH,URINE 8 (5-9); PROTEIN,URINE NEGATIVE (NEGATIVE); UROBILINOGEN,URINE NORMAL (NORMAL)
[2019-02-07 05:43] LABS: BACTERIA,URINE TRACE /HPF
[2019-02-07 05:46] LABS: AMPHETAMINE SCREEN, URINE POSITIVE (NEGATIVE); BARBITURATE SCREEN URINE NEGATIVE (NEGATIVE); BENZODIAZEPINES SCREEN URINE NEGATIVE (NEGATIVE); CANNABINOID SCREEN, URINE POSITIVE (NEGATIVE); COCAINE SCREEN URINE POSITIVE (NEGATIVE); HCG,QUALITATIVE URINE NEGATIVE (NEGATIVE); METHADONE STAT NEGATIVE (NEGATIVE); METHAMPHETAMINE SCREEN URINE S NEGATIVE (NEGATIVE); OPIATE SCREEN URINE NEGATIVE (NEGATIVE); OXYCODONE STAT NEGATIVE (NEGATIVE); PROPOXYPHENE STAT NEGATIVE (NEGATIVE); TRICYCLIC ANTIDEPRESSANTS SCRE NEGATIVE (NEGATIVE)
[2019-02-07 05:52] LABS: ALANINE AMINOTRANSFERASE 26 U/L (0-55); ALBUMIN 4.1 GM/DL (3.2-4.5); ALKALINE PHOSPHATASE 54 U/L (40-136); BILIRUBIN,TOTAL 0.5 MG/DL (0.1-1.0); BUN/CREATININE RATIO 9; CARBON DIOXIDE 18 MMOL/L (21-32); CHLORIDE 111 MMOL/L (98-107); CREATININE SERUM 0.69 MG/DL (0.60-1.30); GFR ESTIMATED > 60; GLUCOSE 106 MG/DL (70-105); POTASSIUM 3.7 MMOL/L (3.6-5.0); SALICYLATE < 5.0 MG/DL (5.0-20.0); SODIUM 143 MMOL/L (135-145); TOTAL PROTEIN 6.8 GM/DL (6.4-8.2)
[2019-02-07 05:54] LABS: ACETAMINOPHEN < 10 UG/ML (10-30)
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
[2019-02-07] MEDS ORDERED: ONDANSETRON 4 MG/2 ML (SDV) Z0FRAN IVP ONE (06:45)
--- OUTSIDE RECORDS SUMMARY | 2019-02-07 06:50 | XMS REPORT ---
Author Author EUGENE RIVERA Organization [facility] Address [address] [place] [address] Care Team Providers Care Producer Arborist Manager Name Role Phone EUGENE RIVERA Unavailable PROBLEMS Unknown Problems ALLERGIES Substance Reaction Event Type Date Status Penicillin V Potassium Unknown Drug Allergy Aug, Active SOCIAL HISTORY No smoking Hx information available PLAN OF CARE Activity Details Follow Up prn Reason: VITAL SIGNS Height 65 in 2016-09-30 Weight 170.0 lbs 2016-09-30 Temperature 97.9 degrees Fahrenheit 2016-09-30 Heart Rate 80 bpm 2016-09-30 Respiratory Rate 18 2016-09-30 BMI 28.29 kg/m2 2016-09-30 Blood pressure systolic 100 mmHg 2016-09-30 Blood pressure diastolic 70 mmHg 2016-09-30 MEDICATIONS Medication Instructions Dosage Frequency Start Date End Date Duration Status Tylenol Extra Strength 500 MG Orally every 6 hrs 2 tablets as needed 6h Active Ondansetron 4 MG Orally every 8 hrs 1 tablet on the tongue and allow to dissolve 8h Aug, 07 days Active RESULTS Name Result Date Reference Range UA LONG DIP (IN HOUSE) 2016-09-30 Lot # [id number] Exp date 2017-10-31 Clarity clear Color yellow Odor none GLU negative ZOHAIB negative KET negative SG >=1.030 BLO negative pH 6.0 Protein negative URO 0.2 NIT negative CECIL negative Lot # [id number] Exp date 2017-11 PROCEDURES Procedure Date Ordered Related Diagnosis Body Site URINALYSIS, AUTO, W/O SCOPE Sep 30, 2016 Office Visit, Est Pt., Level 3 Sep 30, 2016 IMMUNIZATIONS No Known Immunizations
--- OUTSIDE RECORDS SUMMARY | 2019-02-07 06:50 | XMS REPORT ---
Author Author JAIME THOMAS [facility] Address [address] [place] [address] Care Team Providers Care Commercial Loan Processor Name Role Phone JAIME THOMAS Unavailable PROBLEMS Unknown Problems ALLERGIES Substance Reaction Event Type Date Status Penicillin V Potassium Unknown Drug Allergy Nov, Active ENCOUNTERS Encounter Location Date Diagnosis [facility] [address] [address] Nov, Gastroenteritis K52.9 [facility] [address] [address] Mar, Visit for TB skin test Z11.1 and Physical exam Z00.00 [facility] [id number] [place] [phone] Aug, Right upper quadrant abdominal pain R10.11 [facility] [id number] [place] [phone] Mar, Tooth abscess K04.7 [facility] [id number] [place] [phone] Mar, Molluscum contagiosum B08.1 [facility] [id number] [place] [phone] May, MENINGOCOCCAL DX V03.89 and TDAP DX V06.1 [place] [address] [address] Dec, [facility] [id number] [place] [phone] Oct, [place] [address] [address] Oct, [facility] [id number] [address] Oct, [facility] [id number] [place] [address] Oct, [facility] [id number] [place] [address] Aug, [facility] [id number] [place] [phone] Aug, [facility] [id number] [address] Aug, [facility] [id number] [place] [phone] Jul, [facility] [id number] [place] [address] Jul, [facility] [id number] [address] Jul, IMMUNIZATIONS No Known Immunizations SOCIAL HISTORY Never Assessed REASON FOR VISIT N/V/D since this am. scott, also reports having chills. PLAN OF CARE Activity Details Follow Up prn Reason: VITAL SIGNS Height 65 in 2017-12-21 Weight 181.4 lbs 2017-12-21 Temperature 97.8 degrees Fahrenheit 2017-12-21 Heart Rate 86 bpm 2017-12-21 Respiratory Rate 20 2017-12-21 BMI 30.18 kg/m2 2017-12-21 Blood pressure systolic 112 mmHg 2017-12-21 Blood pressure diastolic 68 mmHg 2017-12-21 MEDICATIONS Medication Instructions Dosage Frequency Start Date End Date Duration Status Ondansetron 4 MG Orally every 8 hrs 1 tablet on the tongue and allow to dissolve 8h Aug, 07 days Not-Taking Zofran ODT 4 MG Orally every 6-8 hours as directed Nov, 3 days Active Sprintec 28 0.25-35 MG-MCG Orally Once a day 1 tablet 24h Active Fluoxetine HCl 40 MG Orally Once a day 1 capsule 24h Not-Taking Phentermine HCl 37.5 MG Orally Once a day 1 capsule 24h Active Tylenol Extra Strength 500 MG Orally every 6 hrs 2 tablets as needed 6h Not-Taking RESULTS No Results PROCEDURES No Known procedures INSTRUCTIONS MEDICATIONS ADMINISTERED No Known Medications MEDICAL (GENERAL) HISTORY Type Description Date Surgical History appendectomy Surgical History gallbladder 11/2016 Hospitalization History Appendectomy--6 days
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
[2019-02-07] MEDS ORDERED: NS IV 1000 ML 1,000 ML IV SCH (07:45)
[2019-02-07] MEDS ORDERED: PHEN30CA2 PO (09:22)
--- NOTE | 2019-02-07 09:25 | NUR ---
PATIENT SATES SHE DOES NOT TAKE ANY MEDICATION OTC. [facility] HAS ONLY RECENTLY FILLED THE PHENTERMINE. THEY DO NOT HAVE RECORD OF FILLING FLUOXETINE SO IT HAS BEEN EARLY THAN 2016 THAT IS FAR BACK THEIR RECORDS GO.
--- NOTE | 2019-02-07 10:23 | NUR ---
Behavior Health consulted at this time. Awaiting a phone call back from the network relations consultant counselor.
--- NOTE | 2019-02-07 10:30 | NUR ---
Alexis from behavior health returned this RN's phone call. After informing him of the pt's history, current situation and why she is here, it was determined by Alexis that he feels an in hospital consult is not warranted as long as the pt can go home with a parent for the weekend and is able to receive calls from the [employer] line to schedule a follow up visit for Sunday. Pt is agreeable to go home with her mother for the weekend and was very open to following up with mental health set up by [facility]. Pt also has father and step mother who can be of support at this time as well. Pt is aware that [facility] will call her to schedule this appt and may possibly call throughout the weekend. Dr. Henry informed of this plan and is agreeable to discharge with this plan in place.
--- NOTE | 2019-02-07 11:00 | NUR ---
CM/SS responded to consult for SS. Patient denies any SI and states that it was not a suicide attempt. RN had already contacted the [facility] and crisis management plan is in place for them to check on patient this evening and again tomorrow, outpatient counseling appointment will be made for Sunday. Patient has family support available.
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
--- NOTE | 2019-02-07 12:54 | Discharge Inst-Simple/Standard ---
Discharge Inst-Standard Patient Instructions/Follow Up Plan of Care/Instructions/FU: Plenty of liquids. Follow-up with arrangements made for counseling. Activity as Tolerated: Yes Discharge Diet: No Restrictions LOGAN BUITRAGO MD February 07, 2019 12:54
== END 2019-02-07 12:57 | disposition home or self-care (01) ==
LOC: EDUNIT# 04:49 → ER 04:52 → ICU 06:22 → UNDOADMOB 06:22 → ICU 07:45 → UNDODISOB 13:43
PROVIDERS: ADMIT Internal Medicine; ATTEND Internal Medicine
DX: F10.920 Alcohol use, unspecified with intoxication, uncomplicated (principal); T43.222A Poisoning by selective serotonin reuptake inhibitors, intentional self-harm, initial encounter; F32.9 Major depressive disorder, single episode, unspecified; F41.9 Anxiety disorder, unspecified; Z88.0 Allergy status to penicillin; Z79.899 Other long term (current) drug therapy
CPT/HCPCS: 36415; 80053; 80306; 80320; 80329; 81000; 84703; 85025; 93041; 96361; 96374; 99211; G0378